=== PATIENT | male | born 1945 | race Caucasian/White ===

== ENCOUNTER → 2016-06-14 15:17 | Outpatient (CLI) | payer MEDICARE, BC | END | disposition home or self-care (01) | LOC: D.CT 15:17 | DX: R10.9 Unspecified abdominal pain (principal) ==

== ENCOUNTER 2017-01-29 05:11 | Inpatient (IN) | payer MEDICARE, BC ==
[2017-01-28 09:46] LABS: BASOPHILS 0.8 % (0-2); EOSINOPHILS 7.3 % (0-7); HEMATOCRIT 41.6 % (42.0-54.0); HEMOGLOBIN 13.6 g/dL (13.5-17.5); IMMATURE GRANULOCYTES 0.3 % (0-5); LYMPHOCYTES 19.6 % (15-50); MCHC 32.7 g/dL (31.0-37.0); MCV 94.8 fL (80.0-100.0); MEAN PLATELET VOLUME 9.5 fL (7.4-10.4); PLATELET COUNT 207 10x3/uL (130-400); RBC 4.39 10x6/uL (4.20-6.10); RDW 14.1 % (11.5-14.5); WBC 6.5 10x3/uL (4.8-10.8)
[2017-01-28 09:55] LABS: APTT 27.4 SECONDS (22.8-39.4); INR 0.91 (0.85-1.17); PROTIME 12.1 SECONDS (11.6-15.0)
[2017-01-28 10:14] LABS: APPEARANCE CLEAR (CLEAR); BILIRUBIN NEGATIVE (NEGATIVE); COLOR YELLOW (YELLOW); GLUCOSE NEGATIVE (NEGATIVE); KETONE NEGATIVE (NEGATIVE); LEUKOCYTE ESTERASE NEGATIVE (NEGATIVE); NITRITE NEGATIVE (NEGATIVE); PROTEIN NEGATIVE (NEGATIVE); SPECIFIC GRAVITY 1.015 (1.005-1.020); UROBILINOGEN NORMAL (NORMAL)
[2017-01-29] VITALS (8 sets, daily range): BP systolic 109–160; BP diastolic 68–89; Ht 172.7 cm; Wt 79.5 kg
[~2017-01-29] VITALS: Ht 172.7 cm; Wt 79.5 kg
[~2017-01-29 05:11] MED LIST: AFRIN15 ML NASAL; BUPRENORPHINE HC8 MG SL; FLOMAX0.4 MG PO; MOBIC7.5 MG PO; OMEPRAZOLE40 MG PO; PROZAC20 MG PO
--- NOTE | 2017-01-29 15:20 | NUR ---
RECEIVED TO ROOM 2205 AT THIS TIME FROM THE PACU. FAMILY AT BEDSIDE. PT ALERT AND ORIENTED. ORIENTED PT TO ROOM AND CALL LIGHT. DRESSING TO RIGHT SHOULDER C/D/I. CALL LIGHT IN REACH, WILL CONTINUE WITH PLAN OF CARE.
[2017-01-29 15:39] LABS: BASOPHILS 0.2 % (0-2); EOSINOPHILS 0.8 % (0-7); HEMATOCRIT 39.1 % (42.0-54.0); HEMOGLOBIN 12.8 g/dL (13.5-17.5); IMMATURE GRANULOCYTES 0.2 % (0-5); LYMPHOCYTES 7.4 % (15-50); MCH 31.1 pg (26.0-34.0); MCHC 32.7 g/dL (31.0-37.0); MCV 95.1 fL (80.0-100.0); MEAN PLATELET VOLUME 9.3 fL (7.4-10.4); MONOCYTES 2.1 % (2-11); NEUTROPHILS 89.3 % (40-80); PLATELET COUNT 170 10x3/uL (130-400); RBC 4.11 10x6/uL (4.20-6.10); RDW 14.4 % (11.5-14.5)
[2017-01-29 15:42] LABS: WBC 8.7 10x3/uL (4.8-10.8)
[2017-01-29 15:48] LABS: PROTIME 14.1 SECONDS (11.6-15.0)
[2017-01-29 15:49] LABS: INR 1.1 (0.85-1.17)
[2017-01-29 16:03] LABS: ANION GAP 10.9 mmol/L (8-16); CALCIUM 8.3 mg/dL (8.5-10.1); CARBON DIOXIDE 30.2 mmol/L (21.0-32.0); CREATININE - SERUM 1.4 mg/dL (0.6-1.3); POTASSIUM - SERUM 5.1 mmol/L (3.5-5.1)
[2017-01-30] VITALS (7 sets, daily range): BP systolic 93–150; BP diastolic 58–80
--- NOTE | 2017-01-30 04:29 | NUR ---
BLADDER SCAN REVEALED 611 ML
--- NOTE | 2017-01-30 06:16 | NUR ---
PLACED [address]F M[address] PER DR[address] WALKER
[2017-01-30 06:20] LABS: BASOPHILS 0.2 % (0-2); EOSINOPHILS 0.1 % (0-7); HEMATOCRIT 35.6 % (42.0-54.0); HEMOGLOBIN 11.6 g/dL (13.5-17.5); IMMATURE GRANULOCYTES 0.2 % (0-5); LYMPHOCYTES 9.8 % (15-50); MCH 30.7 pg (26.0-34.0); MCHC 32.6 g/dL (31.0-37.0); MCV 94.2 fL (80.0-100.0); MEAN PLATELET VOLUME 9.7 fL (7.4-10.4); MONOCYTES 12.6 % (2-11); NEUTROPHILS 77.1 % (40-80); PLATELET COUNT 199 10x3/uL (130-400); RBC 3.78 10x6/uL (4.20-6.10); RDW 14.1 % (11.5-14.5); WBC 10.5 10x3/uL (4.8-10.8)
[2017-01-30 06:47] LABS: ALBUMIN 2.6 g/dL (3.4-5.0); BILIRUBIN - TOTAL 1.02 mg/dL (0.2-1.3); CARBON DIOXIDE 27.8 mmol/L (21.0-32.0); CREATININE - SERUM 1.4 mg/dL (0.6-1.3); POTASSIUM - SERUM 4.8 mmol/L (3.5-5.1); PROTEIN - SERUM 5.4 g/dL (6.4-8.2)
--- NOTE | 2017-01-30 08:25 | NUR ---
SCHEDULED MEDICATIONS ADMINISTERED AT THIS TIME. OXY EXTENDED RELEASE HELD PT HAS CONTINUOUS BLOCK TO SHOULDER AND HE IS NOT IN ANY SURGICAL PAIN. AT BEDSIDE. BED ALARM AND SCD'S ON. CALL LIGHT IN REACH, WILL CONTINUE WITH PLAN OF CARE.
--- NOTE | 2017-01-30 10:00 | NUR ---
AMBULATING WITH PHYSICAL THERAPY AT THIS TIME. AWAKE AND ALERT WITH NO COMPLAINTS OF PAIN. FAMILY AT BEDSIDE AND CALL LIGHT IN REACH.
--- NOTE | 2017-01-30 15:25 | NUR ---
MURPHY CATHETER CLAMPED AT THIS TIME FOR BLADDER TRAINING. INSTRUCTED PT TO CALL STAFF WHEN HE FELT THE URGE TO VOID.
--- NOTE | 2017-01-30 18:21 | NUR ---
MURPHY D/C WITH CATH TIP INTACT PER ORDER.
--- NOTE | 2017-01-30 18:27 | NUR ---
PRN TYLENOL ADMINISTERED FOR HEADACHE PER ORDER.
--- NOTE | 2017-01-30 19:50 | NUR ---
PATIENT RESTING IN BED WITH GUEST AT BEDSIDE AND DENIES NEEDS AT THIS TIME. BED IN LOWEST POSITION AND CALL LIGHT WITHIN REACH. ENCOURAGED THE PATIENT TO CALL IF HE HAS NEEDS.
[2017-01-31 04:00] VITALS: BP 131/67
[2017-01-31 05:38] LABS: BASOPHILS 0.5 % (0-2); EOSINOPHILS 4.3 % (0-7); HEMATOCRIT 34.4 % (42.0-54.0); HEMOGLOBIN 11.2 g/dL (13.5-17.5); IMMATURE GRANULOCYTES 0.2 % (0-5); LYMPHOCYTES 16.8 % (15-50); MCH 30.9 pg (26.0-34.0); MCHC 32.6 g/dL (31.0-37.0); MCV 94.8 fL (80.0-100.0); MEAN PLATELET VOLUME 9.4 fL (7.4-10.4); MONOCYTES 14.1 % (2-11); NEUTROPHILS 64.1 % (40-80); PLATELET COUNT 166 10x3/uL (130-400); RBC 3.63 10x6/uL (4.20-6.10); RDW 14.4 % (11.5-14.5); WBC 8.6 10x3/uL (4.8-10.8)
[2017-01-31 06:09] LABS: ALBUMIN 2.6 g/dL (3.4-5.0); ANION GAP 7.3 mmol/L (8-16); BILIRUBIN - TOTAL 0.8 mg/dL (0.2-1.3); CALCIUM 8.3 mg/dL (8.5-10.1); CARBON DIOXIDE 31.5 mmol/L (21.0-32.0); CREATININE - SERUM 1.5 mg/dL (0.6-1.3); POTASSIUM - SERUM 4.8 mmol/L (3.5-5.1); PROTEIN - SERUM 5.4 g/dL (6.4-8.2)
--- NOTE | 2017-01-31 08:00 | NUR ---
AWAKE AND ALERT.ORIENTED X3. NO C/O AT THIS TIME. LUNGS ARE CLEAR BILATERALLY BUT SLIGHTLY DIMINISHED. REPORTS OCCASSIONAL PRODUCTIVE COUGH WITH CLEAR SPUTUM. WILL MONITOR. NEURO CHECKS WNL. DENIES NUMBNESS OR TINGLINING. IV TO LEFT FOREARM IS PATENT WITHOUT REDNESS AT INSERTION SITE. NO BM SINCE SURGERY. VOIDING WITHOUT DIFFICULTY. DENIES NEEDS. FAMILY AT BEDSIDE.
[2017-01-31] MEDS ORDERED: OXYCODONE HCL5 MG PO (08:11)
[2017-01-31] MEDS ORDERED: DURICEF500 MG PO (08:22)
[2017-01-31 10:19] VITALS: BP 133/73
--- NOTE | 2017-01-31 11:00 | NUR ---
DISCHARGE INSTRUCITONS GIVEN BOTH VERBALLY AND WRITTEN. ALL QUESTIONS ANSWERED. PATIENT AND FAMILY VERBALIZED UNDERSTANDING OF SAME. NEEDED PRESCRIPTIONS GIVEN TO PATIENT PER MD. IV TO LEFT FOREARM D/C WITH CATHETER INTACT. WAITING ON RIDE TO D/C HOME.
--- NOTE | 2017-01-31 12:30 | NUR ---
DISCHARGED TO HOME WITH FAMILY AMBULATORY. ALL BELONGINGS WITH PATIENT. DR. GAYLE CHANGED DRESSING TO RIGHT SHOULDER PRIOR TO D/C HOME. INCISION IS CLEAN DRY AND WELL APPROXIMATED.
--- NOTE | 2017-01-31 16:25 | OP ---
PATIENT NAME: MAYELA CORCORAN MEDICAL RECORD: [id number] :45 LOCATION:D[id number] ADMISSION DATE:01/29/17 SURGEON: MAYELA GAYLE, DATE OF OPERATION: 01/29/2017 PREOPERATIVE DIAGNOSES: Right shoulder osteoarthritis and right rotator cuff arthropathy. POSTOPERATIVE DIAGNOSES: Right shoulder osteoarthritis and right rotator cuff arthropathy. PROCEDURE PERFORMED: Right reverse total shoulder arthroplasty. INDICATIONS: Mr. Corcoran is a 71-year-old male, who presented to my office a little over a month ago complaining of right shoulder pain. He had the left shoulder replaced some years ago and had been in pain for a while. He had an MRI in May, which showed a rotator cuff tear. He is tired to deal with it and wanted something to be done. Several options were discussed with him including a total shoulder, but testing his strengths in the office and knowing his MRI showed a rotator cuff tear, though it was not full thickness. In order to get the best outcome, we discussed with him and he decided reverse total shoulder would be the optimal treatment. He was consented and decided to proceed forward with the procedure. During his preop screening, it was discovered he had shingles, so his OR date was delayed until today, until it was all cleared up and he did not have any skin lesions. SURGEON: Mayela Gayle D.O. ASSISTED BY: Patricia Kelly APRN. DESCRIPTION OF PROCEDURE: The patient was given a block in the preoperative area and then taken to the operative suite and placed in supine position, given general anesthetic and intubated. He was then prepped and draped on the right side. Timeout was performed and everyone was in agreement that the right side was the correct side. Once this was done, the patient was given 900 mg of clindamycin preoperatively. With everyone in agreement, the procedure began. Incision was marked out and a knife was used to incise the skin. The plasma blade was then used to get down to the fat strip and cephalic vein was encountered. The cephalic vein was taken laterally and the pectoral fascia was encountered and excised. The bicep tendon was the encountered. The pectoralis major muscle insertion was released off the humerus at the very proximal centimeter and bicep tendon was tenodesed with a #2 Ethibond at that site as well and the biceps tendon was cut. We then followed the bicipital groove up into the shoulder joint itself with the plasma knife and the rotator interval was opened up. The subscapularis was then tagged with Ethibond and peeled off the humerus using the plasma blade and external rotation. The subscapularis was retracted and the humerus was exposed. Brown retractor was placed around the humerus to get the deltoid out of the way. The rotator cuff was then encountered and seen to have a tear in the supraspinatus greater than 50%. Therefore, it was decided to perform a reverse angle visualization of it. The canal was then entered just posterior to the bicipital groove and the humerus was cut using the guide at 20 degrees of retroversion. Once this was done, the glenoid was exposed. Subscapularis was released off of the anterior glenoid as well as the capsule and the bicep tendon and the capsule as well as the labrum was released circumferentially around the glenoid getting exposure. Once this OPERATIVE REPORT [id number] MAYELA CORCORAN was done, a guide was used on the glenoid itself and the central pin was placed. At that time, it was readjusted and felt to be touch anterior to a little more posterior and then a reamer was used over it and the half gay reamer was used over that to make room for the baseplate. The baseplate was then placed using a 25 central screw and 25 baseplate as well. The superior and posterior holes were used to put in superiorly and posteriorly. A 20-mm locking screws were placed at that time. The glenosphere was put into place and locked down and secured. Attention was then drawn to the humerus. The canal was entered again and broached with 20 degrees of retroversion and broached up to a #7 then trialled and the trialing was noted to be a high offset and a 9 mm poly. The humerus was then prepared and irrigated well and the implant was placed. The shoulder was reduced and then taken through range of motion, seemed to have good range of motion and found to be in appropriate placement on the glenosphere. The subscapularis was not repaired, but the interval was closed at that time using 0 Vicryl. The skin was then closed using 2-0 Vicryl in an inverted and interrupted sutures and the skin was closed using 4-0 Monocryl in a subcuticular running fashion and Dermabond was placed over the wound. Adaptic, 4 x 4s, ABD was then placed over the wound. The patient was placed in a sling. He is awakened in stable condition and taken to PACU. ESTIMATED BLOOD LOSS: 100 mL. TRANSINT:[id number] Voice Confirmation ID: [id number] DOCUMENT ID: [id number] MAYELA GAYLE DO at 1625 CC: [id number] DICTATION DATE: 01/29/17 1420 HOUSE VISITOR: 01/29/17 1655 DIS IN 01/31/17 [facility] [address] [place] [address]
== END 2017-01-31 12:30 | disposition home or self-care (01) | DRG 483 ==
LOC: D.SDCHOLD 05:11 → D.MS 05:11 → D.SDCHOLD 09:15 → D.MS 15:06
PROVIDERS: Anesthesiology; Family Medicine; ADMIT Orthopaedic Surgery
PROC: 0RRJ00Z Replacement of Right Shoulder Joint with Reverse Ball and Socket Synthetic Substitute, Open Approach (ICD-10-PCS; principal; 2017-01-29 09:15)
PROC: 0T9B70Z Drainage of Bladder with Drainage Device, Via Natural or Artificial Opening (ICD-10-PCS; 2017-01-30)
DX: M19.011 Primary osteoarthritis, right shoulder (principal); D62 Acute posthemorrhagic anemia; M75.101 Unspecified rotator cuff tear or rupture of right shoulder, not specified as traumatic; F41.9 Anxiety disorder, unspecified; Z87.891 Personal history of nicotine dependence; R33.9 Retention of urine, unspecified

== ENCOUNTER → 2017-05-06 07:35 | Outpatient (CLI) | payer MEDICARE, BC ==
[2017-01-29 15:41] VITALS: BMI 26.6
[~2017-05-06 07:35] MED LIST changes: +DURICEF500 MG PO; +OXYCODONE HCL5 MG PO
== END | disposition home or self-care (01) ==
LOC: D.OPS 05-01 11:00 → D.SP 05-01 11:00 → D.OPS 07:35
DX: M53.3 Sacrococcygeal disorders, not elsewhere classified (principal)

== ENCOUNTER 2018-06-06 12:19 | Emergency (ER) | payer MEDICARE, BC ==
[~2018-06-06] VITALS: Ht 172.7 cm; Wt 79.5 kg
[2018-06-06 12:48] VITALS: Ht 172.7 cm; Wt 79.5 kg
[2018-06-06] MEDS ORDERED: BUPRENORPHINE HC2 MG SL (12:52)
[2018-06-06 13:11] LABS: BASOPHILS 0.1 % (0-2); EOSINOPHILS 1.6 % (0-7); HEMATOCRIT 47.6 % (42.0-54.0); HEMOGLOBIN 15.9 g/dL (13.5-17.5); IMMATURE GRANULOCYTES 0.4 % (0-5); LYMPHOCYTES 2.2 % (15-50); MCH 32.9 pg (26.0-34.0); MCHC 33.4 g/dL (31.0-37.0); MCV 98.6 fL (80.0-100.0); MEAN PLATELET VOLUME 9.1 fL (7.4-10.4); MONOCYTES 8.7 % (2-11); PLATELET COUNT 209 10x3/uL (130-400); RBC 4.83 10x6/uL (4.20-6.10); RDW 13.3 % (11.5-14.5); WBC 13.4 10x3/uL (4.8-10.8)
[2018-06-06 13:35] LABS: ALBUMIN 3.8 g/dL (3.4-5.0); ALKALINE PHOSPHATASE 54 U/L (46-116); ALT (SGPT) 39 U/L (10-68); CALC OSMOLALITY 281 mosm/kg (275-300); CARBON DIOXIDE 26.2 mmol/L (21.0-32.0); CHLORIDE - SERUM 101 mmol/L (98-107); GLUCOSE 121 mg/dL (74-106); POTASSIUM - SERUM 4.4 mmol/L (3.5-5.1); PROTEIN - SERUM 7.2 g/dL (6.4-8.2); SODIUM 140 mmol/L (136-145); UREA NITROGEN 19 mg/dL (7-18); eGFR NON AFRICAN AMERICAN 78 mL/min (90-120)
[2018-06-06 13:40] LABS: APPEARANCE CLEAR (CLEAR); BILIRUBIN NEGATIVE (NEGATIVE); COLOR YELLOW (YELLOW); GLUCOSE NEGATIVE (NEGATIVE); KETONE NEGATIVE (NEGATIVE); NITRITE NEGATIVE (NEGATIVE); PROTEIN NEGATIVE (NEGATIVE); SPECIFIC GRAVITY 1.015 (1.005-1.020); UROBILINOGEN NORMAL (NORMAL)
[2018-06-06] MEDS ORDERED: FLAGYL500 MG PO (15:12)
[2018-06-06] MEDS ORDERED: ZOFRAN8 MG PO (15:16)
[2018-06-06 16:18] VITALS: BP 138/72
== END 2018-06-06 16:19 | disposition home or self-care (01) ==
LOC: D.ER 12:19
PROVIDERS: Emergency Medicine
DX: R11.2 Nausea with vomiting, unspecified (principal); R19.7 Diarrhea, unspecified; R51 Headache

== ENCOUNTER 2018-07-21 16:46 | Day surgery (SDC) | payer MEDICARE, BC ==
[~2018-07-21] VITALS: Ht 170.2 cm; Wt 77.1 kg
[~2018-07-21 16:46] MED LIST changes: +BUPRENORPHINE HC2 MG SL; +FLAGYL500 MG PO; +ZOFRAN8 MG PO
[2018-07-21] MEDS ORDERED: PROZAC10 MG PO (17:15)
[2018-07-21] MEDS ORDERED: ACETAMINOPHEN500 M1 PO (17:17)
[2018-07-21 17:37] VITALS: BP 146/97; Ht 170.2 cm; Wt 77.1 kg
[2018-07-21] MEDS ORDERED: AUGMENTIN 875-11 TAB PO (20:15)
[2018-07-21] MEDS ORDERED: HYDROCODON-ACE1 EAC7 PO (20:16)
[2018-07-21] MEDS ORDERED: ULTRAM50 MG PO (20:26)
--- NOTE | 2018-07-21 20:30 | NUR ---
RECIEVED PT TO FLOOR VIA BED. VSS. ALERT AND ORIENTED. NO SIGNS OF DISTRESS. PT STATES NO PAIN AT THIS TIME. AT BEDSIDE. RIGHT LOWER LEG WRAPPED IN DRESSING, CDI. PROPPED ON PILLOW. EDUCATED PT ON NEED TO VOID. LEFT IV INFUSING NS. PT STATES HE HAD NOT TAKEN DAILY FLOMAX. DISCUSSED W/ DR YANCEY, ONE TIME FLOMAX ORDERED. WILL CONTINUE TO MONITOR
[2018-07-21 20:49] LABS: HEMOGLOBIN 13.4 g/dL (13.5-17.5); MCHC 32.7 g/dL (31.0-37.0); MCV 97.9 fL (80.0-100.0); MEAN PLATELET VOLUME 10.1 fL (7.4-10.4); RBC 4.19 10x6/uL (4.20-6.10); RDW 13.5 % (11.5-14.5); WBC 9.2 10x3/uL (4.8-10.8)
--- NOTE | 2018-07-21 21:45 | NUR ---
PT VOIDED. EDUCATED ON DISCHARGE INSTRUCTIONS. GAVE PT PRESCRIPTIONS. DISCHARGE PAPERWORK SIGNED AND COPY MADE FOR PATIENT. PT LEFT FLOOR VIA WC W/ AT SIDE.
--- NOTE | 2018-07-22 07:55 | OP ---
PATIENT NAME: MAYELA BENITEZ MEDICAL RECORD: [id number] :45 LOCATION:D[facility] ADMISSION DATE: SURGEON: KENDALL BROWN MD DATE OF OPERATION: 07/21/2018 SURGEON: Kendall Brown MD PREOPERATIVE DIAGNOSES: 1. Full thickness laceration of the calf. 2. Dog bite. POSTOPERATIVE DIAGNOSES: 1. Full thickness laceration of the calf. 2. Dog bite. PROCEDURE PERFORMED: Excisional debridement and wound irrigation of right lower extremity dog bite. Repair of full thickness laceration of the anterior calf 10 cm x 4 x 3 repair of posterior calf laceration 5 x 3 x 2 cm. ANESTHESIA: General. COMPLICATIONS: None. SPECIMENS: None. WOUND CLASS: Contaminated. OPERATIVE COURSE: After consent was obtained, the patient was taken to the operating room and placed in the supine position on the operating table. A total intravenous anesthesia was given. A timeout was taken to confirm the correct patient and procedure. Then, 40 cc of lidocaine were injected around the two full thickness lacerations. The larger laceration was on the medial side of the right calf. It was 10 cm in length. The laceration was full thickness to the fascia of the gastrocnemius. The wound was copiously irrigated and suctioned. All necrotic tissue was debrided with sharp scissor dissection. The subcutaneous tissue was reapproximated using 3-0 Vicryl suture. A Bantam drain was placed into the deep space. The skin was reapproximated loosely with kehinde. The Lny drain was secured to the skin with 3-0 Vicryl suture. Next, the 5-cm laceration on the posterior calf was copiously irrigated and suctioned. All necrotic tissue was sharply debrided with Metzenbaum scissors. The subcutaneous tissue and skin reapproximated using 3-0 Vicryl suture. The skin edges were loosely reapproximated using kehinde. The middle of the incision was left without kehinde and to allow for drainage. At this time, the leg was cleaned. Vaseline impregnated gauze was placed over the skin closures. Leg was then wrapped with gauze and secured in place with an Benjamin wrap. At the end of the case, all needle and instrument counts were correct. No complications occurred. The patient was transferred to the recovery room in satisfactory condition. TRANSINT:[id number] Voice Confirmation ID: [id number] DOCUMENT ID: [id number] OPERATIVE REPORT [id number] MAYELA BENITEZ,KENDALL Cuellar MD at 0755 CC: [id number] DICTATION DATE: 07/21/182023 [facility] [employer] [facility] ERECTING: 07/22/18 0036 [facility] [place] 07/21/18 [place] [id number] [place] [id number]
== END 2018-07-21 21:50 | disposition home or self-care (01) ==
LOC: D.OPS 16:46 → D.MS 20:35 → D.OPS 21:50
PROVIDERS: Anesthesiology
DX: S81.851A Open bite, right lower leg, initial encounter (principal); W54.0XXA Bitten by dog, initial encounter